=== PATIENT | female | born 1995 | race Caucasian/White ===

== ENCOUNTER 2022-10-09 21:20 | Emergency (ER) | payer OTHER ==
[~2022-10-09] VITALS: Ht 167.6 cm; Wt 65.3 kg
[2022-10-09 22:13] VITALS: BP 148/106
[2022-10-10] MEDS ORDERED: BUPRENORPHINE HC8 MG SL (01:44)
[2022-10-10] MEDS ORDERED: DROSPIRENONE-E1 EAC3 PO (01:44)
== END 2022-10-10 02:33 | disposition left against medical advice (07) ==
LOC: ER 21:20
DX: Z53.21 Procedure and treatment not carried out due to patient leaving prior to being seen by health care provider (principal)
CPT/HCPCS: 87081; 87430

== ENCOUNTER → 2022-10-21 | Outpatient (CLI) | payer OTHER ==
[~2022-10-21] MED LIST: BUPRENORPHINE HC8 MG SL; DROSPIRENONE-E1 EAC3 PO
[2022-10-22 12:54] LABS: Candida species (DNA Probe) Negative (NEGATIVE); G. vaginalis (DNA Probe) Positive (NEGATIVE); T. vaginalis (DNA Probe) Negative (NEGATIVE)
[2022-10-25 00:14] LABS: CHLAMYDIA BY NAA Positive (Negative); GONOCOCCUS BY NAA Negative (Negative); TRICH VAG BY NAA Negative (Negative)
== END | disposition home or self-care (01) ==
LOC: LAB 12:50 → LAB SHORT 12:50
PROVIDERS: Physician Assistant
DX: Z20.2 Contact with and (suspected) exposure to infections with a predominantly sexual mode of transmission (principal)
CPT/HCPCS: 87480; 87491; 87510; 87591; 87660; 87661